=== PATIENT | male | born 1975 | race Caucasian/White ===

== ENCOUNTER 2021-07-14 10:32 | Emergency (ER) | payer SELFPAY ==
--- NOTE | ~2021-07-14 | XR_ITS ---
EXAMINATION: XR chest 2V DATE: 07/14/2021 12:49 INDICATION: Chest pain and cough TECHNIQUE: PA and lateral views of the chest are obtained. COMPARISON: 10/04/2012 FINDINGS: The lungs are free of acute opacities. There is no pleural effusion or pneumothorax. The ca rdiomediastinal silhouette is normal. The visualized bones and soft tissues are unremarkable. IMPRESSION: 1. No acute cardiopulmonary abnormality. Reviewed, dictated and finalized at location B. CONSULTANT
--- NOTE | 2021-07-14 10:43 | ECG_ITS ---
Measurements Intervals [place] Rate: 82 P: 69 AR: 208 QRS: 84 QRSD: 88 T: 47 QT: 352 QTc: 413 Interpretive Statements SINUS RHYTHM INCOMPLETE RIGHT BUNDLE BRANCH BLOCK DELAYED PRECORDIAL R/S TRANSITION BASELINE WANDER- V2 BORDERLINE ECG Electronically Signed On 07-14-2021 11:29:23 [employer] SUPERVISOR by Derick Araujo D.O.
--- NOTE | 2021-07-14 11:08 | ED.CHESTPAIN ---
HPI - Chest Pain General Chief Complaint: Upper Respiratory Infection Stated Complaint: headache,nausea/mid chest hurts but smoker Time Seen by Provider: 07/14/21 11:09 Source: patient Mode of arrival: ambulatory Limitations: no limitations History of Present Illness HPI narrative: 46-year-old man with a history of smoking comes into today complaining of chest congestion, cough, fatigue, nausea and headache that started in last few days. He also has burning chest pain when he coughs. Patient states he felt like he was febrile. He denies any specific sick exposures. He has not had the COVID vaccine. He denies vomiting, shortness of breath, diarrhea, dizziness, syncope, or abdominal pain. His cough is nonproductive. 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) Associated symptoms: nausea and cough Treatment prior to arrival: none Risk Factors Coronary artery disease risk factors: smoking history Related Data Allergies Allergy/AdvReac Type Severity Reaction Status Date / Time Penicillins Allergy Anaphylaxis Verified 07/14/21 11:45 Review of Systems Review of Systems: All systems reviewed & are unremarkable except as noted in HPI and below Constitutional: Constitutional: Denies chills, Reports fatigue and Denies fever(s) Eyes: Eyes: Denies change in vision and Denies photophobia ENT: Denies nasal congestion and Denies sore throat Cardiovascular: Cardiovascular: Reports chest pain, Denies rapid heart rate and Denies radiating jaw, neck or arm pain Respiratory: Respiratory: Reports cough, Denies dyspnea and Denies wheezing Gastrointestinal: Gastrointestinal: Denies abdominal pain, Denies diarrhea, Reports nausea and Denies vomiting Musculoskeletal: Musculoskeletal: Denies back pain, Denies arthralgias and Denies joint swelling Integumentary/Breasts: Skin/Breast: Denies pruritus, Denies erythema and Denies rash Neurologic: Denies vertigo, Denies dizziness, Denies syncope, Reports headache(s) and Denies focal weakness Allergic/Immunologic: Allergic/Immunologic: Denies lip swelling and Denies throat swelling [facility] Social History Social History (Updated 07/14/21 @ 12:59 by Boston Delgadillo MD) Smoking status: Current every day smoker Alcohol intake: current Alcohol use details: Rarely Substance use: current Substance use type: marijuana Other substance usage details: Occasional Living arrangements: with family Exam Const: General: healthy appearing and alert Orientation/consciousness: patient oriented x3 Limitations: no limitations Other: Mild acute distress. HENMT: Head: normal to inspection Ears: external ears normal, TM's normal bilaterally and EAC's normal Face and sinus: normal facial exam Mouth: Yes moist mucous membranes Throat: posterior oropharynx normal Eyes: Conjunctivae: conjunctivae normal Pupils: Equal, round and reactive pupils present EOM: EOMs intact bilaterally Resp: Effort & Inspection: normal respiratory effort, not labored and no retractions Auscultation: rales (Throughout right lung) and wheezes expiratory wheezes (Late scattered throughout) Cardio: Rate: regular rate Rhythm: regular rhythm Heart sounds: no murmurs Skin: General skin exam: normal color, no jaundice and no pallor Rashes: no rashes Neuro: General: patient oriented x3, moves all extremities, no focal motor deficits and CN's II-XI intact bilaterally Speech: normal speech Gait exam (Neuro): Normal gait present Extrem: General: normal to inspection and no clubbing, cyanosis or edema Psych: Appearance: grossly normal and well kempt Mental Status: mental status grossly normal Affect: normal affect Attitude: cooperative Thought kortney
[2021-07-14 11:32] VITALS: BP 147/96; PULSE 77; RESP 20; TEMP 36.6; O2SAT 94
[2021-07-14] MEDS: ASPIRIN 81 MG CHEWABLE TABLET 324 MG PO (11:44)
[2021-07-14 11:52] LABS: Basophils Absolute Auto 0.02 K/mm3 (0.00-0.10); Basophils Percent Auto 0.2 % (0.0-1.0); Hematocrit 47.3 % (40.0-54.0); Hemoglobin 16.1 g/dL (14.0-18.0); Immature Granulocyte Absolute 0.03 K/mm3 (0.00-0.00); Immature Granulocyte Percent A 0.3 % (0.0-0.0); Lymphocytes Absolute Auto 1.21 K/mm3 (1.10-4.50); Lymphocytes Percent Auto 10.5 % (18.0-42.0); Mean Corpuscular Hemoglobin 32.1 pg (27.0-31.0); Mean Corpuscular Volume 94.4 fL (78.0-102.0); Mean Platelet Volume 8.9 fl (8.7-11.0); Monocytes Absolute Auto 0.66 K/mm3 (0.10-0.90); Monocytes Percent Auto 5.7 % (2.0-11.0); Neutrophils Absolute Auto 9.6 K/mm3 (1.7-7.2); Neutrophils Percent Auto 83.3 % (50.0-70.0); Platelet Count Result 257 K/mm3 (150-420); Red Blood Count 5.01 M/mm3 (4.70-6.10); Red Cell Distribution Width 12.6 % (11.6-14.4); White Blood Count 11.6 K/mm3 (4.8-10.8)
[2021-07-14 12:09] LABS: Alanine Aminotransferase 89 U/L (16-63); Albumin Level 3.9 g/dL (3.4-5.0); Alkaline Phosphatase 97 U/L (46-116); Anion Gap 8 mmol/L (8-16); Aspartate Amino Transferase 130 U/L (15-37); Bilirubin,Total 0.6 mg/dL (0.00-1.00); Blood Urea Nitrogen 9 mg/dL (7-18); Calcium 8.8 mg/dL (8.5-10.1); Carbon Dioxide 27 mmol/L (21-32); Chloride 100 mmol/L (98-108); Estimated CRCL calculation 81 ml/min; Estimated Glomerular Filt Rate > 60; Glucose 125 mg/dL (70-99); Lactic Acid Reflex 0.8 mmol/L (0.4-2.0); Osmolality Calculated 279 mOsm/kg (285-295); Sodium 135 mmol/L (136-145); Total Protein 7.9 g/dL (6.4-8.2)
[2021-07-14 12:10] LABS: Influenza A QL RT-PCR Negative (Negative); Influenza B QL RT-PCR Negative (Negative); SARS-CoV-2 RNA PCR Negative (Negative)
[2021-07-14 12:14] LABS: CRP < 0.5 mg/dL (0.0-0.9)
[2021-07-14] MEDS: IPRATROPIUM 0.5 MG/ALBUTEROL SULFATE 2.5 MG AMPUL.NEB 3 ML INHALATION (13:16)
[2021-07-14 13:20] VITALS: PULSE 69; RESP 20; O2SAT 100
[2021-07-14 13:56] VITALS: BP 155/98; PULSE 71; RESP 20; O2SAT 95
[2021-07-14 14:14] LABS: Add Urine Microscopic? NO; Appearance Urine Clear (Clear); Bilirubin Urine Negative (Negative); Blood Urine Negative (Negative); Color Urine Yellow (Yellow); Glucose Urine UA Negative (Negative); Ketones Urine Negative (Negative); Leukocyte Esterase Ur Negative LEU/UL (Negative); Nitrate Urine Negative (Negative); Protein Urine Negative (Negative); Urobilinogen Urine 0.2 mg/dL (0.2-1.0)
== END 2021-07-14 13:58 | disposition home or self-care (01) ==
PROVIDERS: Emergency Provider Emergency Medicine
DX: J20.8 Acute bronchitis due to other specified organisms (principal); Z20.822 Contact with and (suspected) exposure to COVID-19
CPT/HCPCS: 36415; 71046; 80053; 81003; 83605; 84484; 85025; 86140; 87040; 87502; 93005; 94640; 99284; A9270; C9803; U0003; U0005

== ENCOUNTER 2022-12-08 23:50 | Emergency (ER) | payer SELFPAY ==
--- NOTE | ~2022-12-08 | XR_ITS ---
EXAMINATION: XR chest 2V DATE: 12/09/2022 01:20 INDICATION: Cough and shortness of breath TECHNIQUE: PA and lateral views of the chest are obtained. COMPARISON: 07/14/2021 FINDINGS: The lungs are free of acute opacities. No pleural effusion or pneumothorax. The cardiomedia stinal silhouette is normal. There is mild thoracic spondylosis. IMPRESSION: 1. No acute cardiopulmonary abnormality. Reviewed, dictated and finalized at location F.
[2022-12-08 23:54] VITALS: BP 123/87; PULSE 72; RESP 18; TEMP 36; O2SAT 96
--- NOTE | 2022-12-08 23:55 | ED.URI ---
HPI - URI/Sore Throat General Chief Complaint: Upper Respiratory Infection Stated Complaint: cough Time Seen by Provider: 12/08/22 23:55 Source: patient and RN notes reviewed Mode of arrival: ambulatory Limitations: no limitations History of Present Illness MD elicited complaint: cough Onset (ago): day(s) (2) Consistency: constant Severity: moderate Description of mucous: clear Able to tolerate fluids by mouth: Yes Exacerbating factors: deep breaths Relieving factors: nothing Context: sick contacts Associated symptoms: fever, chills, myalgias and shortness of breath Treatments prior to arrival: none Related Data Allergies Allergy/AdvReac Type Severity Reaction Status Date / Time Penicillins Allergy Anaphylaxis Verified 07/14/21 11:45 Review of Systems Review of Systems: All systems reviewed & are unremarkable except as noted in HPI and below PMFSH Past Medical History Medical History (Updated 12/09/22 @ 01:34 by Nikko Gay MD) No active medical problems Surgical History Surgical History (Updated 12/09/22 @ 00:04 by Nikko Gay MD) H/O hand surgery Social History Social History Smoking status: Current every day smoker Alcohol intake: current Alcohol use details: Rarely Substance use: current Substance use type: marijuana Other substance usage details: Occasional Living arrangements: with family Exam Const: General: no acute distress, alert and ill appearing acutely Nutritional Appearance: well nourished Orientation/consciousness: patient oriented x3 Limitations: no limitations HENMT: Head: normal to inspection Face/Nose/Sinus: Normal external nose present Face and sinus: normal facial exam Mouth: Yes moist mucous membranes Eyes: Conjunctivae: conjunctivae normal Pupils: Equal, round and reactive pupils present EOM: EOMs intact bilaterally Neck: Neck: normal visual inspection Resp: Effort & Inspection: normal respiratory effort Auscultation: rhonchi throughout and wheezes scattered wheezes Cardio: Rate: regular rate Rhythm: regular rhythm GI: GI Palp: Yes Soft to palpation and No Tenderness to palpation present (GI) Auscultation: normal bowel sounds Back/Spine/Pelvis: Cervical Spine: cervical ROM normal Thoracic/Lumbar Spine: thoraco-lumbar ROM normal Skin: General skin exam: normal color Rashes: no rashes Neuro: General: patient oriented x3, moves all extremities, no focal motor deficits and CN's II-XI intact bilaterally Speech: normal speech Gait exam (Neuro): Normal gait present Extrem: General: normal to inspection and no clubbing, cyanosis or edema Psych: Mental Status: mental status grossly normal Affect: normal affect Attitude: cooperative Course Vital Signs Vital signs: Vital Signs Temperature 36.0 C L 12/08/22 23:54 Pulse Rate 72 12/08/22 23:54 Respiratory Rate 18 12/08/22 23:54 Blood Pressure 123/87 12/08/22 23:54 Pulse Oximetry 96 12/08/22 23:54 Oxygen Delivery Room Air 12/08/22 23:54 Temperature 36.3 C L 12/09/22 01:53 Pulse Rate 66 12/09/22 01:53 Respiratory Rate 20 12/09/22 01:53 Blood Pressure 160/95 H 12/09/22 01:53 Pulse Oximetry 94 12/09/22 01:53 Oxygen Delivery Room Air 12/09/22 01:53 MDM - URI/Sore Throat Differential Diagnosis Differential diagnosis: Likely upper respiratory infection, viral infection, bronchitis, influenza and other ( COVID, pneumonia, electrolyte abnormality, anemia) Lab Data Attestation: I reviewed the patient's lab results. 12/09/22 00:27 12/09/22 00:27 Labs: Lab Results 12/08/22 12/09/22 12/09/22 Range/Units 23:56 00:27 00:27 WBC 11.9 H (4.8-10.8) K/mm3 RBC 4.70 (4.70-6.10) M/mm3 Hgb 15.5 (14.0-18.0) g/dL Hct 44.5 (40.0-54.0) % MCV 94.7 (78.0-102.0) fL MCH 33.0 H (27.0-31.0) pg MCHC 34.8 (32.0-36.0) g/dL RDW 12.5 (11.6-14.4) % Plt
[2022-12-09 00:15] VITALS: O2SAT 94
[2022-12-09 00:37] LABS: Basophils Absolute Auto 0.06 K/mm3 (0.00-0.10); Basophils Percent Auto 0.5 % (0.0-1.0); Eosinophils Absolute Auto 0.13 K/mm3 (0.02-0.50); Eosinophils Percent Auto 1.1 % (1.0-6.0); Hematocrit 44.5 % (40.0-54.0); Hemoglobin 15.5 g/dL (14.0-18.0); Immature Granulocyte Absolute 0.06 K/mm3 (0.00-0.00); Immature Granulocyte Percent A 0.5 % (0.0-0.0); Lymphocytes Absolute Auto 2.88 K/mm3 (1.10-4.50); Lymphocytes Percent Auto 24.2 % (18.0-42.0); Mean Corpuscular HGB Conc 34.8 g/dL (32.0-36.0); Mean Corpuscular Volume 94.7 fL (78.0-102.0); Mean Platelet Volume 8.9 fl (8.7-11.0); Monocytes Absolute Auto 0.84 K/mm3 (0.10-0.90); Neutrophils Percent Auto 66.7 % (50.0-70.0); Platelet Count Result 272 K/mm3 (150-420); Red Cell Distribution Width 12.5 % (11.6-14.4); White Blood Count 11.9 K/mm3 (4.8-10.8)
[2022-12-09 00:48] LABS: Influenza A QL RT-PCR Negative (Negative); Influenza B QL RT-PCR Negative (Negative); SARS-CoV-2 RNA PCR Negative (Negative)
[2022-12-09 00:57] LABS: Alanine Aminotransferase 35 U/L (16-63); Albumin Level 3.9 g/dL (3.4-5.0); Alkaline Phosphatase 100 U/L (46-116); Anion Gap 7 mmol/L (8-16); Aspartate Amino Transferase 24 U/L (15-37); Bilirubin,Total 0.2 mg/dL (0.00-1.00); Blood Urea Nitrogen 10 mg/dL (7-18); Calcium 8.3 mg/dL (8.5-10.1); Carbon Dioxide 29 mmol/L (21-32); Chloride 105 mmol/L (98-108); Estimated CRCL calculation 95 ml/min; Estimated Glomerular Filt Rate > 60; Glucose 93 mg/dL (70-99); Osmolality Calculated 291 mOsm/kg (285-295); Potassium 3.7 mmol/L (3.5-5.1); Sodium 141 mmol/L (136-145); Total Protein 7.8 g/dL (6.4-8.2)
[2022-12-09 00:59] LABS: CRP < 0.5 mg/dL (0.0-0.9); Lactic Acid Reflex 0.7 mmol/L (0.4-2.0)
[2022-12-09] MEDS: IPRATROPIUM 0.5 MG/ALBUTEROL SULFATE 2.5 MG AMPUL.NEB 3 ML INHALATION (01:35)
[2022-12-09 01:37] VITALS: PULSE 96; RESP 20; O2SAT 96
[2022-12-09 01:43] VITALS: PULSE 70
[2022-12-09] MEDS: DOXYCYCLINE HYCLATE 100 MG TABLET PO (01:48)
[2022-12-09] MEDS: methylPREDNISolone SOD SUCC 125 MG VIAL IM (01:48)
[2022-12-09 01:53] VITALS: BP 160/95; PULSE 66; RESP 20; TEMP 36.3; O2SAT 94
--- NOTE | 2022-12-15 12:37 | PC.NURSE ---
FINAL BLOOD CULTURE RESULTS X 2 NO GROWTH AFTER 5 DAYS. NO ACTION NEEDED.
== END 2022-12-09 01:56 | disposition home or self-care (01) ==
PROVIDERS: Emergency Provider Emergency Medicine
DX: J18.9 Pneumonia, unspecified organism (principal); F17.200 Nicotine dependence, unspecified, uncomplicated; Z20.822 Contact with and (suspected) exposure to COVID-19
CPT/HCPCS: 36415; 71046; 80053; 83605; 83735; 85025; 86140; 87040; 87502; 94640; 96372; 99283; A9270; J2930; U0003; U0005